=== PATIENT | female | born 1995 | race Asian ===

== ENCOUNTER 2018-11-17 01:07 | Emergency (ER) | payer OTHER ==
[~2018-11-17] VITALS: Ht 154.9 cm; Wt 72.6 kg
[2018-11-17 01:10] VITALS: BP 129/77
[2018-11-17] MEDS ORDERED: DIPHTH,PERTUSS(ACELL),TET TOX 0.5 ML DISP.SYRIN. VAX IM ONE (01:45)
[2018-11-17] MEDS ORDERED: LIDOCAINE 2%/EPI 1:100,000 20 ML VIAL. IJ ONE (01:45)
[2018-11-17] MEDS ORDERED: NEOMY/BACITR/POLYMYXIN OINT PACKET. TP ONE (01:45)
--- NOTE | 2018-11-17 02:33 | PHYS DOC ---
Past Medical History Past Medical History: No Pertinent History Past Surgical History: No Surgical History Additional Information: Nonsmoker Alcohol Use: None Drug Use: None Adult General Chief Complaint Chief Complaint: LACERATION/AVULSION HPI HPI 23-year-old female presents with report of left anterior forearm laceration after slip and fall catching it on a side of a metal chair which occurred just prior to arrival. Patient reports last tetanus booster greater than 5 years ago. Denies . Denies other injury. Review of Systems Review of Systems Constitutional: Denies fever or chills Eyes: Denies redness or eye pain HENT: Denies nasal congestion or sore throat Respiratory: Denies cough or shortness of breath Cardiovascular: Denies chest pain or palpitations GI: Denies abdominal pain, nausea, or vomiting : Denies dysuria or hematuria Musculoskeletal: Denies back pain or joint pain Integument: Denies rash; reports left anterior forearm laceration Neurologic: Denies headache, focal weakness or sensory changes Complete systems were reviewed and found to be within normal limits, except as documented in this note. Current Medications Current Medications Current Medications Medications (Trade) Dose Ordered Sig/Derek Start Time Stop Time Status Last Admin Dose Admin Diphtheria/ Tetanus/Acell Pertussis (Boostrix) 0.5 ml ONCE ONCE 11/17/18 01:45 11/17/18 01:46 DC 11/17/18 02:43 0.5 ML Lidocaine/ Epinephrine (LIDOCAINE 2%-EPI 1:100,000 multi-dose) 20 ml 1X ONCE 11/17/18 01:45 11/17/18 01:46 DC 11/17/18 02:33 20 ML Neomycin/ Polymyxin/ Bacitracin (Triple Antibiotic Ointment) 1 pkt 1X ONCE 11/17/18 01:45 11/17/18 01:46 DC 11/17/18 02:33 1 PKT Allergies Allergies Allergies Coded Allergies Type Severity Reaction Last Updated Verified No Known Drug Allergies 11/17/18 No Physical Exam Physical Exam Constitutional: Well developed, well nourished, no acute distress, non-toxic appearance HENT: Normocephalic, atraumatic, oropharynx moist Eyes: Conjunctiva normal, no discharge Neck: Normal range of motion, no tenderness, supple Cardiovascular: Heart rate normal, regular rhythm Lungs & Thorax: Bilateral breath sounds clear to auscultation, no wheezing Skin: Warm, dry, no erythema, no rash; 5 cm laceration with gapping noted to proximal anterior left forearm, bleeding controlled Back: No tenderness, no CVA tenderness Extremities: No tenderness, ROM intact, left forearm laceration as above, distal sensation and pulses intact to left upper extremity Neurologic: Alert and oriented X 3, normal motor function, normal sensory function, no focal deficits noted Psychologic: Affect normal, judgement normal Current Patient Data Vital Signs Vital Signs Date Time Temp Pulse Resp B/P (MAP) Pulse Ox O2 Delivery O2 Flow Rate FiO2 11/17/18 01:10 98.7 82 20 129/77 (94) 98 Room Air 98.7 EKG EKG [] Radiology/Procedures Radiology/Procedures [] Course & Med Decision Making Course & Med Decision Making Patient presents with laceration to left anterior forearm. Tetanus updated. Wound cleaned, repaired, and dressed. Patient stable for discharge with outpatient follow-up with PCP. Discussed findings and plan with patient, who acknowledges understanding and agreement. Dragon Disclaimer Dragon Disclaimer This electronic medical record was generated, in whole or in part, using a voice recognition dictation system. Laceration/Wound Repair Laceration/Wound Repair : Wound Location: upper extremity (left proximal anterior forearm) Wound's Depth, Shape: linear Wound Length (cm): 5 Irrigated w/ Saline (ccs): 150 Anesthesia: Lidocaine w/ Epi (2%) Volume Anesthetic (ccs): 7 Wound Debrided: minimal Wound Repaired With: sutures Suture Size/Type: 5:0 (Nylon) Number of Sutures: 11 Sterile Dressing Applied?: Yes Progress Verbal consent obtained. Time out performed. Hand hygiene utilized. Wound cleaned with ChloraPrep. Anesthesia obtained via a 25-gauge hypodermic needle with (8) mL's of lidocaine 2% with epinephrine. Copious irrigation performed. Wound well approximated with 5-0 Nylon x 11 sutures. Patient tolerated procedure well and without difficulty. Empiric antibiotic ointment applied by RN prior to sterile dressing. Departure Departure Impression: Primary Impression: Forearm laceration Disposition: 01 HOME, SELF-CARE Condition: STABLE Referrals: NO PCP (PCP) Patient Instructions: Laceration Care, Adult, [id number] Additional Instructions: Do not soak your wound. You may shower. Clean wound daily with soap and water. Change dressing 2 times daily. Use over the counter antibiotic ointment with each dressing change. Sutures need to be removed in 7-10 days. Present to your family doctor or local urgent care for removal. You may also present to the ED but it will be an additional visit/charge. After suture removal you may use Vitamin E ointment to soften the wound and prevent scarring. Use over the counter Tylenol and/or Ibuprofen for pain or discomfort. Problem Qualifiers Primary Impression: Forearm laceration Encounter type: initial encounter Laterality: left Qualified Codes: S51.812A - Laceration without foreign body of left forearm, initial encounter JHOAN ELLIS DO Nov 17, 2018 02:33
== END 2018-11-17 02:48 | disposition home or self-care (01) ==
LOC: ER 01:07
DX: S51.812A Laceration without foreign body of left forearm, initial encounter (principal); W01.0XXA Fall on same level from slipping, tripping and stumbling without subsequent striking against object, initial encounter; Y93.89 Activity, other specified; Y92.89 Other specified places as the place of occurrence of the external cause; Y99.8 Other external cause status
CPT/HCPCS: 12002; 90471; 90715; 99284; J3490

== ENCOUNTER 2018-11-27 19:39 | Emergency (ER) | payer OTHER ==
[~2018-11-27] VITALS: Ht 152.4 cm; Wt 72.6 kg
[2018-11-27 20:13] VITALS: BP 122/77
--- NOTE | 2018-11-27 20:44 | PHYS DOC ---
Past Medical History Past Medical History: No Pertinent History (DORIS DECKER APRN) Past Surgical History: No Surgical History (DORIS DECKER APRN) Alcohol Use: None Drug Use: None (DORIS DECKER APRN) Attending Signature I have participated in the care of this patient and I have reviewed and agree with all pertinent clinical information above including history, exam, and recommendations. (FELIPE BECKWITH MD) Adult General Chief Complaint Chief Complaint: SUTURE/STAPLE REMOVAL HPI HPI Patient is a 23 year old female who presents with she states approximately 10 days ago she fell into a side of a chair that cut her left anterior forearm. Patient had 13 stitches intact. Patient is here today to have them removed. (DORIS DECKER APRN) Review of Systems Review of Systems Integument: sutures in place on Left anterior forearm. Denies rash or skin lesions [] All other systems were reviewed and found to be within normal limits, except as documented in this note. (DORIS DECKER APRN) Allergies Allergies Allergies Coded Allergies Type Severity Reaction Last Updated Verified No Known Drug Allergies 11/17/18 No (FELIPE BECKWITH MD) Physical Exam Physical Exam Constitutional: Well developed, well nourished, no acute distress, non-toxic appearance. [] Extremities: No tenderness, no cyanosis, no clubbing, ROM intact, no edema. [] Neurologic: Alert and oriented X 3, normal motor function, normal sensory function, no focal deficits noted. [] Psychologic: Affect normal, judgement normal, mood normal. [] (DORIS DECKER APRN) Current Patient Data Vital Signs Vital Signs Date Time Temp Pulse Resp B/P (MAP) Pulse Ox O2 Delivery O2 Flow Rate FiO2 11/27/18 20:13 98.9 85 16 122/77 (92) 98 Room Air 98.9 (FELIPE BECKWITH MD) EKG EKG [] (DORIS DECKER APRN) Radiology/Procedures Radiology/Procedures [] (DORIS DECKER APRN) Course & Med Decision Making Course & Med Decision Making Edges are approximated with to be healed. 13 stitches are removed. The middle section of the laceration was not filled together and was slightly gaping. Dermabond and Steri-Strips were used to anchor it shot. There are no signs of infection, no redness, no drainage, no cellulitis. Patient is told to watch for signs of infection and follow up with primary care provider. (DORIS DECKER APRN) Dragon Disclaimer Dragon Disclaimer This electronic medical record was generated, in whole or in part, using a voice recognition dictation system. (DORIS DECKER APRN) Departure Departure Impression: Primary Impression: Visit for suture removal Disposition: HOME, SELF-CARE Condition: STABLE Referrals: NO PCP (PCP) Patient Instructions: Suture Removal Additional Instructions: Follow up with primary care provider if needed. Do not soak the arm in water. DORIS DECKER APRN Nov 27, 2018 20:44 FELIPE BECKWITH MD Nov 29, 2018 02:37
== END 2018-11-27 20:54 | disposition home or self-care (01) ==
LOC: ER 19:39
DX: S51.812D Laceration without foreign body of left forearm, subsequent encounter (principal); W26.8XXD Contact with other sharp object(s), not elsewhere classified, subsequent encounter
CPT/HCPCS: 99284